=== PATIENT | female | born 1990 | race Two or more races ===

== ENCOUNTER 2025-09-07 09:15 | Inpatient (IN) | payer OTHER ==
[~2025-09-07] VITALS: Ht 61 cm; Wt 62.6 kg
[2025-09-07 11:29] LABS: URINE APPEARANCE Clear; URINE BILIRRUBIN Negative (NEGATIVE); URINE BLOOD Negative; URINE COLOR Yellow; URINE GLUCOSE Negative (NEGATIVE); URINE KETONE Negative (NEGATIVE); URINE LEUKOCYTE Negative; URINE NITRATE Negative; URINE PROTEIN Negative (NEGATIVE); URINE UROBILINOGEN 0.2 E.U./dl
[2025-09-07 11:34] LABS: URINE BACTERIA 640.6 uL (0.0-1933); URINE EPITHELIAL CELLS 41.0 uL (0.0-38.8); URINE RBC 25.8 uL (0.0-20.8); URINE WBC 3.8 uL (0.0-23.2)
[2025-09-07 11:36] LABS: BASO % 0.5 % (0.1-1.2); EOS # 0.18 (0.04-0.54); EOS % 3.3 % (0.7-7.0); LYMPH # 2.21 (1.18-3.74); LYMPH % 40.0 % (19.3-53.1); MEAN PLATELET VOLUME 10.40 fl (9.4-12.4); MONO # 0.32 (0.24-0.82); MONO % 5.8 % (4.7-12.5); NEUT # 2.77 (1.56-6.13); NEUT % 50.0 % (34.0-71.1); RED CELL DISTRIBUTION WIDTH 13.5 % (11.6-14.4)
[2025-09-07 11:59] LABS: URINE CAST 0.43 uL (0.0-1.40)
[2025-09-07 12:10] LABS: INR 1.04
[2025-09-07 12:16] LABS: ALT/SGPT 18.0 U/L (12-78); AST/SGOT 15.0 U/L (15-37); BILIRUBIN TOTAL 0.68 mg/dL (0.3-1.2); BUN CREA RATIO 15.0 (7.0-25.0); CREATININE SERUM 0.79 mg/dL (0.55-1.02); GFR 82.35; GLOBULINA 3.3 G/DL (2.4-3.5); GLUCOSE FASTING 85.0 mg/dL (65-100); OSMOLALITY SERUM 282.0 MOSM/KG (275-295)
[2025-09-13] MEDS ORDERED: DEXAMETHASONE SODIUM PHOSPHATE 4 MG/ML VIAL ONE (07:24)
[2025-09-13] MEDS ORDERED: ENALAPRILAT DIHYDRATE 1.25 MG/ML VIAL IV PRN (11:45)
[2025-09-13] MEDS ORDERED: ONDANSETRON HCL 2 MG/ML VIAL IV PRN (11:45)
[2025-09-13] MEDS ORDERED: ACETAMINOPHEN 500 MG GEL..CAP PO ONE (16:29)
[2025-09-13] MEDS ORDERED: TRAMADOL HCL 50 MG TABLET PO SCH (17:00)
[2025-09-13] MEDS ORDERED: CYCLOBENZAPRINE HCL 5 MG TABLET PO SCH (17:00)
[2025-09-13] MEDS ORDERED: ACETAMINOPHEN 500 MG GEL..CAP PO SCH (17:00)
[2025-09-13] MEDS ORDERED: DIPHENHYDRAMINE HCL 75 MG,LIDOCAINE HCL 30 ML,MAG HYDROX/ALUMINUM HYD/SIMETH 30 ML PO SCH (17:00)
[2025-09-13 18:30] VITALS: BP 111/73; O2SAT 98
[2025-09-13] MEDS ORDERED: PANTOPRAZOLE SODIUM 40 MG/VIAL VIAL IV PUSH SCH (21:00)
[2025-09-13] MEDS ORDERED: MAG HYDROX/ALUMINUM HYD/SIMETH 30 ML BLIST.PACK PO ONE (23:08)
[2025-09-14 01:08] VITALS: BP 107/64; O2SAT 100
[2025-09-14] MEDS ORDERED: MAG HYDROX/ALUMINUM HYD/SIMETH 30 ML BLIST.PACK PO ONE (07:10)
[2025-09-14 07:40] VITALS: BP 98/63; O2SAT 99
== END 2025-09-14 18:15 | disposition home or self-care (01) | DRG 627 ==
LOC: SURH 09-13 06:45 → SURG 09-13 07:00 → O/R 09-13 07:00 → SURH 09-13 09:15 → SURG 09-13 13:26
PROVIDERS: ADMIT Surgery; ATTEND Surgery
PROC: 0GTH0ZZ Resection of Right Thyroid Gland Lobe, Open Approach (ICD-10-PCS; principal; 2025-09-13 06:45)
DX: C73 Malignant neoplasm of thyroid gland (principal)